=== PATIENT | male | born 1950 | race Caucasian/White ===

== ENCOUNTER 2025-03-12 06:38 | Day surgery (SDC) | payer MEDICARE, OTHER ==
[2025-03-12] MEDS ORDERED: Propofol 200 MG/20 ML SDV IV ONE (06:39)
[2025-03-12] MEDS ORDERED: Lactated Ringers 1,000 ML IV ONE (06:39)
[2025-03-12] MEDS: Lactated Ringers 1,000 ML IV SCH (07:16)
[2025-03-12] MEDS ORDERED: Propofol 200 MG/20 ML SDV ONE (07:44)
== END 2025-03-12 09:17 | disposition home or self-care (01) ==
LOC: DL.ENDO 06:38
PROVIDERS: ATTEND Internal Medicine Gastroenterology
DX: Z12.11 Encounter for screening for malignant neoplasm of colon (principal); D12.0 Benign neoplasm of cecum; K64.8 Other hemorrhoids; E78.00 Pure hypercholesterolemia, unspecified; I12.9 Hypertensive chronic kidney disease with stage 1 through stage 4 chronic kidney disease, or unspecified chronic kidney disease; E11.22 Type 2 diabetes mellitus with diabetic chronic kidney disease; N18.9 Chronic kidney disease, unspecified; Z86.0100 Personal history of colon polyps, unspecified; Z79.899 Other long term (current) drug therapy
CPT/HCPCS: 00811; 45385; 88305; 99100; J2704; J7120